=== PATIENT | female | born 1965 | race American Indian/Alaskan Native ===

== ENCOUNTER 2022-06-17 16:08 | Emergency (ER) | payer SELFPAY ==
--- NOTE | 2022-06-17 17:04 | Emergency Department Report ---
Chief Complaint: Back Pain/Injury Stated Complaint: OUT OF MEDS/BODY PAIN Time Seen by Provider: 06/17/22 17:01 - HPI History of Present Illness: States that she has been in [place] rehab program [place] but had to come here emergently and does not have any meds in amounts and suicidal ideations. States that she also has a plan and her plan is to overdose on the duloxetine that she has at home - ROS Review of Systems: Suicidal ideation - Exam Vital Signs: Vital Signs 06/17/22 16:17 Temperature 98 F Pulse Rate 86 Respiratory 20 Rate Blood Pressure 112/74 [Left] O2 Sat by Pulse 100 Oximetry Physical Exam: Alert and oriented MSE screening note: Focused history and physical exam performed. Due to findings the following was ordered: Mental health evaluation, blood alcohol, salicylate level, acetaminophen level, CBC, CMP, UA, urine drug screen. Patient will be transferred to psychiatric area for evaluation by provider in the main department. ED Disposition for MSE Condition: Stable
[2022-06-17 18:42] LABS: Basophils # (Auto) 0.1 K/mm3 (0.0-0.1); Basophils % (Auto) 1.1 % (0.0-1.8); Eosinophils # (Auto) 0.1 K/mm3 (0.0-0.4); Eosinophils % (Auto) 1.4 % (0.0-4.3); Hematocrit 39.5 % (30.3-42.9); Hemoglobin 12.8 gm/dl (10.1-14.3); Lymphocytes # (Auto) 2.4 K/mm3 (1.2-5.4); Lymphocytes % (Auto) 41.8 % (13.4-35.0); Mean Corpuscular HGB Conc 32 % (30-34); Mean Corpuscular Volume 85 fl (79-97); Monocytes # (Auto) 0.4 K/mm3 (0.0-0.8); Monocytes % (Auto) 6.3 % (0.0-7.3); Platelet Count 209 K/mm3 (140-440); Red Blood Count 4.64 M/mm3 (3.65-5.03); Red Cell Distribution Width 15.1 % (13.2-15.2)
[2022-06-17 18:50] LABS: Alanine Aminotransferase 6 units/L (7-56); Albumin 4.1 g/dL (3.9-5); BUN/Creatinine Ratio 11; Blood Urea Nitrogen 10 mg/dL (7-17); Calcium 10.1 mg/dL (8.4-10.2); Hemolysis Index 10
[2022-06-17] MEDS ORDERED: GABAPENTIN 300 MG CAP PO ONE (18:55)
[2022-06-17] MEDS ORDERED: ONDANSETRON 4 MG/2 ML INJ IM ONE (19:50)
[2022-06-17] MEDS ORDERED: ZIPRASIDONE MESYLATE 20 MG VIAL IM PRN (19:50)
--- NOTE | 2022-06-17 20:26 | Emergency Department Report ---
ED General Adult HPI - General Chief complaint: Back Pain/Injury Stated complaint: OUT OF MEDS/BODY PAIN Time Seen by Provider: 06/17/22 17:01 Source: patient, EMS Mode of arrival: Stretcher Limitations: No Limitations - History of Present Illness Initial comments: Patient is a 57-year-old female presenting to ED with request for medication refill. States she is from [facility] family. Request refills for gabapentin, lisinopril and methadone. She currently denies any symptoms. - Related Data Previous Rx's Medication Instructions Recorded Last Taken Type Gabapentin 300 mg PO BID #60 cap 06/17/22 Unknown Rx Lisinopril [Zestril] 5 mg PO DAILY #30 06/17/22 Unknown Rx diphenhydrAMINE [Benadryl CAP] 25 mg PO QHS PRN #10 capsule 06/17/22 Unknown Rx Allergies Allergy/AdvReac Type Severity Reaction Status Date / Time amoxicillin [From Augmentin] Allergy Intermediate Hives Verified 06/17/22 18:54 clavulanic acid Allergy Intermediate Hives Verified 06/17/22 18:54 [From Augmentin] cephalexin AdvReac Unknown Verified 06/17/22 16:18 ED Review of Systems ROS: Stated complaint: OUT OF MEDS/BODY PAIN Other details as noted in HPI Constitutional: denies: chills, fever Respiratory: denies: cough, shortness of breath, wheezing Cardiovascular: denies: chest pain, palpitations Gastrointestinal: denies: abdominal pain, nausea, diarrhea Genitourinary: denies: urgency, dysuria, discharge Musculoskeletal: denies: back pain, joint swelling, arthralgia Skin: denies: rash, lesions Neurological: denies: headache, weakness, paresthesias Psychiatric: denies: anxiety, depression ED Past Medical Hx - Medications Home Medications: Home Medications Medication Instructions Recorded Confirmed Last Taken Type Gabapentin 300 mg PO BID #60 cap 06/17/22 Unknown Rx Lisinopril [Zestril] 5 mg PO DAILY #30 06/17/22 Unknown Rx diphenhydrAMINE [Benadryl CAP] 25 mg PO QHS PRN #10 capsule 06/17/22 Unknown Rx ED Physical Exam - General Limitations: No Limitations General appearance: alert, in no apparent distress - Head Head exam: Present: atraumatic, normocephalic - Neck Neck exam: Present: normal inspection - Respiratory Respiratory exam: Present: normal lung sounds bilaterally. Absent: respiratory distress - Cardiovascular Cardiovascular Exam: Present: regular rate, normal rhythm, normal heart sounds - GI/Abdominal GI/Abdominal exam: Present: soft. Absent: distended, tenderness - Rectal Rectal exam: Present: deferred - Neurological Exam Neurological exam: Present: alert, oriented X3 - Psychiatric Psychiatric exam: Present: normal affect, normal mood - Skin Skin exam: Present: warm, dry, intact, normal color ED Course Vital Signs 06/17/22 16:17 Temperature 98 F Pulse Rate 86 Respiratory 20 Rate Blood Pressure 112/74 [Left] O2 Sat by Pulse 100 Oximetry ED Medical Decision Making - Lab Data Result diagrams: 06/17/22 18:01 06/17/22 18:01 - Medical Decision Making I explained to the patient that we are unable to refill her methadone however we will gladly refill her lisinopril and gabapentin. Patient stable for discharge. Critical care attestation.: If time is entered above; I have spent that time in minutes in the direct care of this critically ill patient, excluding procedure time. ED Disposition Clinical Impression: Medication refill Disposition: 01 HOME / SELF CARE / HOMELESS Is pt being admited?: No Condition: Stable Prescriptions: diphenhydrAMINE [Benadryl CAP] 25 mg PO QHS PRN #10 capsule PRN Reason: Insomnia Gabapentin 300 mg PO BID #60 cap Lisinopril [Zestril] 5 mg PO DAILY #30
[2022-06-17 21:32] VITALS: BP 132/80
== END 2022-06-18 02:28 | disposition home or self-care (01) ==
LOC: ED 16:08
DX: Z76.0 Encounter for issue of repeat prescription (principal); Z88.0 Allergy status to penicillin; Z88.1 Allergy status to other antibiotic agents; Z88.8 Allergy status to other drugs, medicaments and biological substances
CPT/HCPCS: 36415; 80053; 85025; 96372; 99283; J2405; J3486; 80320; G0480